=== PATIENT | female | born 1940 | race Caucasian/White ===

== ENCOUNTER 2021-10-27 16:02 | Inpatient (IN) ==
[2021-10-27] MEDS ORDERED: ONDANSETRON 4 MG/2 ML VIAL ONE (16:32)
[2021-10-27] MEDS ORDERED: fentaNYL 100 MCG/2 ML VIAL ONE (16:32)
[2021-10-27] MEDS ORDERED: fentaNYL 100 MCG/2 ML VIAL IV STA (16:40)
[2021-10-27] MEDS ORDERED: ONDANSETRON 4 MG/2 ML VIAL IV STA (16:40)
[2021-10-27 16:52] LABS: Basophils # 0.1 10*3/uL (0.0-0.2); Basophils % 0.4 % (0.0-0.8); Eosinophils % 0.3 % (0.00-10.9); Hematocrit 40.9 VOL% (35.7-47.0); Hemoglobin 13.4 GM/DL (12.0-16.0); Immature Granulocytes Absolute 0.15 #; Lymphocytes # 1.4 10*3/uL (1.4-4.0); Lymphocytes % 9.4 % (21.3-54.2); Mean Corpuscular HGB Conc 32.8 GM/DL (32-36); Mean Corpuscular Volume 94.7 FL (87-102); Mean Platelet Volume 9.4 FL (9.6-12.0); Monocytes # 0.9 10*3/uL (0.11-0.8); Monocytes % 5.6 % (1.7-12.7); Neutrophils % 83.3 % (38.7-73.9); Platelet Count 255 T/CUMM (130-400); Red Blood Count 4.32 MC/CUMM (3.8-5.5); Red Cell Distribution Width 12.4 % (9.3-17.3); White Blood Count 15.3 T/CUMM (4-12)
[2021-10-27 17:03] LABS: INR 1.2; PT Patient Result 12.8 SECS (10.5-12.0); Partial Thromboplastin Time 35.5 SECS (23.8-32.1)
[2021-10-27 17:11] LABS: Calcium 8.6 MG/DL (8.5-10.1); Osmolality,Calculated 274.8 MOS/KG (273-304); Potassium 3.2 MMOL/L (3.5-5.1)
[2021-10-27] MEDS ORDERED: ONDANSETRON 4 MG/2 ML VIAL IV PRN (17:26)
[2021-10-27] MEDS ORDERED: ALBUTEROL 2.5 MG/3 ML NEB RESP TX PRN (17:26)
[2021-10-27] MEDS ORDERED: hydrALAZINE 20 MG/1 ML VIAL IV PRN (17:26)
[2021-10-27] MEDS ORDERED: ACETAMINOPHEN 325 MG TABLET PO PRN (17:26)
[2021-10-27] MEDS ORDERED: GLUCAGON 1 MG VIAL IM PRN (17:26)
[2021-10-27] MEDS ORDERED: POTASSIUM CHLORIDE 20 MEQ TABLET PO STA (17:34)
[2021-10-27] MEDS ORDERED: KETOROLAC 30 MG/1 ML VIAL IV PRN (17:34)
[2021-10-27] MEDS ORDERED: MAGNESIUM SULF RIDER 2 GM/50 ML PREMIX IV PRN (17:35)
[2021-10-27] MEDS ORDERED: POTASSIUM CHLORIDE RIDER 10 MEQ/100 ML PREMIX IV PRN (17:35)
[2021-10-27] MEDS ORDERED: MAGNESIUM SULF RIDER 4 GM/100 ML PREMIX IV PRN (17:35)
[2021-10-27] MEDS ORDERED: DEXTROSE 10% 250 ML BAG IV PRN (18:01)
[2021-10-27] MEDS: LEVOFLOXACIN INJ 500 MG/100 ML PREMIX IV SCH (19:55)
[2021-10-27] MEDS ORDERED: AZITHROMYCIN INJ 500 MG in SODIUM CHLORIDE 0.9% 250 ML IV SCH (21:00)
[2021-10-27] MEDS: DOCUSATE SODIUM 100 MG CAPSULE PO SCH (21:53)
[2021-10-28 00:21] LABS: Bacteria,Urine Occasional /HPF (Few); Hyaline Casts,Urine 10 /LPF (0-3); Mucus,Urine Many /LPF (Occasional); RBC,Urine 4 /HPF (0-4)
[2021-10-28 00:24] LABS: Bilirubin,Urine Small mg/dL (Negative); Blood, Urine Moderate mg/dL (Negative); Glucose,Urine (UA) Negative (Negative); Ketones,Urine 40 mg/dL (Negative); Nitrite,Urine Negative (Negative); Protein,Urine 30 mg/dL (Negative); Urine Appearance Clear (Clear); Urine Color Yellow (Yellow); Urine Specific Gravity > 1.030 (1.001-1.035)
[2021-10-28 05:08] LABS: Basophils % 0.2 % (0.0-0.8); Hematocrit 31.2 VOL% (35.7-47.0); Hemoglobin 10.3 GM/DL (12.0-16.0); Immature Granulocytes % 0.8 %; Immature Granulocytes Absolute 0.11 #; Lymphocytes # 1.4 10*3/uL (1.4-4.0); Lymphocytes % 10.9 % (21.3-54.2); Mean Corpuscular Volume 93.7 FL (87-102); Mean Platelet Volume 9.6 FL (9.6-12.0); Monocytes # 0.9 10*3/uL (0.11-0.8); Monocytes % 7.1 % (1.7-12.7); Platelet Count 313 T/CUMM (130-400); Red Blood Count 3.33 MC/CUMM (3.8-5.5); Red Cell Distribution Width 12.4 % (9.3-17.3)
[2021-10-28 05:40] LABS: Calcium 8.4 MG/DL (8.5-10.1); Osmolality,Calculated 276.8 MOS/KG (273-304); Potassium 4.4 MMOL/L (3.5-5.1); Risk Ratio 2.68; Thyroid Stimulating Hormone 1.1 uIU/ml (0.358-3.74); VLDL Cholesterol 10.8 MG/DL
[2021-10-28] MEDS ORDERED: CLINDAMYCIN INJ 900 MG/50 ML PREMIX IV ONE (07:00)
[2021-10-28] MEDS ORDERED: fentaNYL 100 MCG/2 ML VIAL ONE (07:18)
[2021-10-28] MEDS ORDERED: DEXAMETHASONE 4 MG/1 ML VIAL ONE (07:18)
[2021-10-28] MEDS ORDERED: BUPIVACAINE MPF 0.25% 30 ML VIAL ONE (07:18)
[2021-10-28] MEDS ORDERED: METOPROLOL TARTRATE 5 MG/5 ML VIAL IV ONE ×2 (07:27→17:18)
[2021-10-28] MEDS ORDERED: ONDANSETRON 4 MG/2 ML VIAL ONE (08:50)
[2021-10-28] MEDS ORDERED: ETOMIDATE 40 MG/20 ML VIAL IV ONE (08:50)
[2021-10-28] MEDS ORDERED: PHENYLEPHRINE 1 MG/10 ML SYRINGE IV ONE (08:50)
[2021-10-28] MEDS ORDERED: propofoL 200 MG/20 ML VIAL IV ONE (08:50)
[2021-10-28] MEDS ORDERED: LIDOCAINE 2% 5 ML VIAL ONE (08:50)
[2021-10-28] MEDS ORDERED: ROCURONIUM 50 MG/5 ML VIAL IV ONE (08:50)
[2021-10-28] MEDS ORDERED: SEVOFLURANE 1 UNIT/15 MINUTE INH ONE ×6 (08:50→10:02)
[2021-10-28] MEDS: DOCUSATE SODIUM 100 MG CAPSULE PO SCH ×2 (08:51→20:30)
[2021-10-28] MEDS: PANTOPRAZOLE 40 MG TABLET PO SCH (08:51)
[2021-10-28] MEDS ORDERED: GLYCOPYRROLATE 0.4 MG/2 ML VIAL ONE (09:58)
[2021-10-28] MEDS ORDERED: NEOSTIGMINE 10 MG/10 ML VIAL ONE (09:58)
[2021-10-28] MEDS ORDERED: BISACODYL 10 MG SUPP RECTAL PRN (10:07)
[2021-10-28] MEDS ORDERED: MAGNESIUM HYDROXIDE SUSP 30 ML UDCUP PO PRN (10:07)
[2021-10-28] MEDS ORDERED: LACTULOSE 20 GM/30 ML UDCUP PO PRN (10:07)
[2021-10-28] MEDS ORDERED: diphenhydrAMINE CAP 25 MG CAPSULE PO PRN (10:07)
[2021-10-28] MEDS ORDERED: PHENYLEPHRINE DRIP 20 MG/250 ML PREMIX IV ONE (10:52)
[2021-10-28 11:19] LABS: Hematocrit 28.8 VOL% (35.7-47.0); Hemoglobin 9.5 GM/DL (12.0-16.0)
[2021-10-28] MEDS: LACTATED RINGERS 1,000 ML IV SCH (12:22)
[2021-10-28] MEDS: CLINDAMYCIN INJ 900 MG/50 ML PREMIX IV SCH (16:33)
[2021-10-28] MEDS ORDERED: METOPROLOL TARTRATE 25 MG TABLET PO ONE (17:18)
[2021-10-28] MEDS: LEVOFLOXACIN INJ 500 MG/100 ML PREMIX IV SCH (20:29)
[2021-10-28] MEDS: METOPROLOL TARTRATE 25 MG TABLET PO SCH (20:30)
[2021-10-28] MEDS: APIXABAN 5 MG TABLET PO SCH (20:30)
[2021-10-28] MEDS: MEMANTINE 10 MG TABLET PO SCH (20:32)
[2021-10-29] MEDS: CLINDAMYCIN INJ 900 MG/50 ML PREMIX IV SCH ×2 (00:39→08:18)
[2021-10-29 05:01] LABS: Basophils % 0.1 % (0.0-0.8); Hematocrit 22.5 VOL% (35.7-47.0); Hemoglobin 7.2 GM/DL (12.0-16.0); Immature Granulocytes % 1.1 %; Immature Granulocytes Absolute 0.11 #; Lymphocytes # 1.4 10*3/uL (1.4-4.0); Lymphocytes % 14.3 % (21.3-54.2); Mean Corpuscular Volume 96.2 FL (87-102); Mean Platelet Volume 9.5 FL (9.6-12.0); Monocytes % 10.3 % (1.7-12.7); Neutrophils % 74.2 % (38.7-73.9); Platelet Count 248 T/CUMM (130-400); Red Blood Count 2.34 MC/CUMM (3.8-5.5); Red Cell Distribution Width 12.8 % (9.3-17.3)
[2021-10-29 05:18] LABS: Calcium 7.7 MG/DL (8.5-10.1); Osmolality,Calculated 279.7 MOS/KG (273-304); Potassium 4.8 MMOL/L (3.5-5.1)
[2021-10-29] MEDS: LACTATED RINGERS 1,000 ML IV SCH (05:39)
[2021-10-29 05:57] LABS: Anisocytosis 1+; Band Neutrophils 6 % (0-10); Burr Cells Few; Lymphocytes 11 % (20-55); Ovalocytes Few; Platelet Estimate Normal; Smudge Cells Few; Total Cells Counted 100
[2021-10-29] MEDS ORDERED: SODIUM CHLORIDE 0.9% 1,000 ML IV PRN (07:21)
[2021-10-29] MEDS: FAMOTIDINE 20 MG TABLET PO SCH (08:19)
[2021-10-29] MEDS: lisinopriL 20 MG TABLET PO SCH (08:19)
[2021-10-29] MEDS: PANTOPRAZOLE 40 MG TABLET PO SCH ×2 (08:19→09:39)
[2021-10-29] MEDS: APIXABAN 5 MG TABLET PO SCH ×2 (08:19→21:03)
[2021-10-29] MEDS: MEMANTINE 10 MG TABLET PO SCH ×2 (08:20→21:02)
[2021-10-29] MEDS: MULTIVITAMIN (CENTRUM) TABLET PO SCH (08:20)
[2021-10-29] MEDS: DOCUSATE SODIUM 100 MG CAPSULE PO SCH ×2 (08:20→21:03)
[2021-10-29] MEDS: CETIRIZINE 10 MG TABLET PO SCH (08:20)
[2021-10-29] MEDS: FLUTICASONE 50 MCG NASAL SPRAY 16 GM BOTTLE BOTH NARES SCH (08:20)
[2021-10-29] MEDS: METOPROLOL TARTRATE 25 MG TABLET PO SCH ×2 (08:20→21:02)
[2021-10-29] MEDS: LEVOFLOXACIN INJ 500 MG/100 ML PREMIX IV SCH (21:03)
[2021-10-29 22:30] LABS: Hematocrit 31.8 VOL% (35.7-47.0)
[2021-10-29 22:32] LABS: Hemoglobin 10.6 GM/DL (12.0-16.0)
[2021-10-30 06:37] LABS: Basophils % 0.2 % (0.0-0.8); Eosinophils % 0.4 % (0.00-10.9); Hematocrit 31.6 VOL% (35.7-47.0); Hemoglobin 10.4 GM/DL (12.0-16.0); Immature Granulocytes % 1.6 %; Immature Granulocytes Absolute 0.13 #; Lymphocytes # 1.3 10*3/uL (1.4-4.0); Lymphocytes % 15.7 % (21.3-54.2); Mean Corpuscular HGB Conc 32.9 GM/DL (32-36); Mean Platelet Volume 9.6 FL (9.6-12.0); Monocytes # 0.7 10*3/uL (0.11-0.8); Neutrophils % 73.1 % (38.7-73.9); Platelet Count 205 T/CUMM (130-400); Red Blood Count 3.55 MC/CUMM (3.8-5.5); Red Cell Distribution Width 17.6 % (9.3-17.3)
[2021-10-30 06:52] LABS: Calcium 8.2 MG/DL (8.5-10.1); Osmolality,Calculated 283.3 MOS/KG (273-304)
[2021-10-30] MEDS: LACTATED RINGERS 1,000 ML IV SCH (07:51)
[2021-10-30] MEDS: DOCUSATE SODIUM 100 MG CAPSULE PO SCH ×2 (08:01→20:18)
[2021-10-30] MEDS: MULTIVITAMIN (CENTRUM) TABLET PO SCH (08:01)
[2021-10-30] MEDS: FLUTICASONE 50 MCG NASAL SPRAY 16 GM BOTTLE BOTH NARES SCH (08:01)
[2021-10-30] MEDS: lisinopriL 20 MG TABLET PO SCH (08:01)
[2021-10-30] MEDS: APIXABAN 5 MG TABLET PO SCH ×2 (08:01→20:18)
[2021-10-30] MEDS: CETIRIZINE 10 MG TABLET PO SCH (08:01)
[2021-10-30] MEDS: FAMOTIDINE 20 MG TABLET PO SCH (08:01)
[2021-10-30] MEDS: MEMANTINE 10 MG TABLET PO SCH ×2 (08:01→20:18)
[2021-10-30] MEDS: METOPROLOL TARTRATE 25 MG TABLET PO SCH ×2 (08:01→20:18)
[2021-10-30] MEDS: PANTOPRAZOLE 40 MG TABLET PO SCH ×2 (08:01)
[2021-10-30] MEDS: LEVOFLOXACIN INJ 500 MG/100 ML PREMIX IV SCH (20:15)
[2021-10-31] MEDS: LACTATED RINGERS 1,000 ML IV SCH ×2 (02:57→22:01)
[2021-10-31 04:18] LABS: Basophils % 0.3 % (0.0-0.8); Eosinophils # 0.1 10*3/uL (0.0-0.87); Eosinophils % 0.8 % (0.00-10.9); Hematocrit 31.5 VOL% (35.7-47.0); Hemoglobin 10.2 GM/DL (12.0-16.0); Immature Granulocytes % 1.9 %; Immature Granulocytes Absolute 0.16 #; Lymphocytes # 1.3 10*3/uL (1.4-4.0); Lymphocytes % 14.5 % (21.3-54.2); Mean Corpuscular HGB Conc 32.4 GM/DL (32-36); Mean Corpuscular Volume 89.5 FL (87-102); Monocytes # 0.7 10*3/uL (0.11-0.8); Monocytes % 7.9 % (1.7-12.7); Neutrophils % 74.6 % (38.7-73.9); Platelet Count 203 T/CUMM (130-400); Red Blood Count 3.52 MC/CUMM (3.8-5.5); Red Cell Distribution Width 17.2 % (9.3-17.3); White Blood Count 8.6 T/CUMM (4-12)
[2021-10-31 04:38] LABS: Calcium 8.2 MG/DL (8.5-10.1); Osmolality,Calculated 279.4 MOS/KG (273-304)
[2021-10-31] MEDS: lisinopriL 20 MG TABLET PO SCH (09:46)
[2021-10-31] MEDS: PANTOPRAZOLE 40 MG TABLET PO SCH ×2 (09:46→10:20)
[2021-10-31] MEDS: CETIRIZINE 10 MG TABLET PO SCH (09:46)
[2021-10-31] MEDS: DOCUSATE SODIUM 100 MG CAPSULE PO SCH ×2 (09:46→21:57)
[2021-10-31] MEDS: APIXABAN 5 MG TABLET PO SCH ×2 (09:46→21:57)
[2021-10-31] MEDS: MULTIVITAMIN (CENTRUM) TABLET PO SCH (09:46)
[2021-10-31] MEDS: FAMOTIDINE 20 MG TABLET PO SCH (09:46)
[2021-10-31] MEDS: METOPROLOL TARTRATE 25 MG TABLET PO SCH ×2 (09:46→21:57)
[2021-10-31] MEDS: MEMANTINE 10 MG TABLET PO SCH ×2 (09:58→21:57)
[2021-10-31] MEDS: FLUTICASONE 50 MCG NASAL SPRAY 16 GM BOTTLE BOTH NARES SCH (10:19)
[2021-10-31] MEDS: LEVOFLOXACIN INJ 500 MG/100 ML PREMIX IV SCH (21:57)
[2021-11-01 06:07] LABS: Basophils % 0.4 % (0.0-0.8); Eosinophils # 0.2 10*3/uL (0.0-0.87); Immature Granulocytes % 2.2 %; Lymphocytes # 1.4 10*3/uL (1.4-4.0); Lymphocytes % 15.8 % (21.3-54.2); Mean Corpuscular HGB Conc 32.3 GM/DL (32-36); Mean Corpuscular Volume 90.4 FL (87-102); Mean Platelet Volume 9.2 FL (9.6-12.0); Monocytes # 0.7 10*3/uL (0.11-0.8); Monocytes % 7.3 % (1.7-12.7); Neutrophils % 72.3 % (38.7-73.9); Platelet Count 224 T/CUMM (130-400); Red Blood Count 3.43 MC/CUMM (3.8-5.5); Red Cell Distribution Width 16.6 % (9.3-17.3)
[2021-11-01 06:22] LABS: Calcium 8.1 MG/DL (8.5-10.1); Osmolality,Calculated 280.3 MOS/KG (273-304); Potassium 3.8 MMOL/L (3.5-5.1)
[2021-11-01] MEDS: APIXABAN 5 MG TABLET PO SCH (09:37)
[2021-11-01] MEDS: PANTOPRAZOLE 40 MG TABLET PO SCH ×2 (09:37→09:39)
[2021-11-01] MEDS: MULTIVITAMIN (CENTRUM) TABLET PO SCH (09:38)
[2021-11-01] MEDS: METOPROLOL TARTRATE 25 MG TABLET PO SCH (09:38)
[2021-11-01] MEDS: lisinopriL 20 MG TABLET PO SCH (09:38)
[2021-11-01] MEDS: CETIRIZINE 10 MG TABLET PO SCH (09:38)
[2021-11-01] MEDS: MEMANTINE 10 MG TABLET PO SCH (09:38)
[2021-11-01] MEDS: FAMOTIDINE 20 MG TABLET PO SCH (09:38)
[2021-11-01] MEDS: FLUTICASONE 50 MCG NASAL SPRAY 16 GM BOTTLE BOTH NARES SCH (09:38)
[2021-11-01] MEDS: DOCUSATE SODIUM 100 MG CAPSULE PO SCH (09:38)
[2021-11-01 11:23] VITALS: BP 114/81
== END 2021-11-01 13:12 | DRG 480 ==
LOC: N.ED 16:02 → SUATTDRO 17:26 → N.EDINP 17:26 → N.3E 18:41
PROVIDERS: ADMIT Internal Medicine; ATTEND Emergency Medicine